=== PATIENT | male | born 1995 | race Hispanic/Latino ===

== ENCOUNTER 2018-08-14 05:31 | Emergency (ER) | payer OTHER, SELFPAY ==
[2018-08-14 06:31] LABS: Absolute Lymphocytes (CBC) 2.6 K/uL (0.7-4.9); Absolute Monocytes 0.5 K/uL (0.1-1.3); Absolute Neutrophil 5.7 K/uL (1.8-8.0); Basophils % 0.5 % (0-1.3); Eosinophils % 1.4 % (0-4.4); Hematocrit 46.3 % (39.6-49.0); Lymphocytes % 28.9 % (15.3-44.8); MCH 31.2 pg (27.0-35.0); MCV 88.7 fL (80-100); MPV 8.4 fL (7.6-11.3); Monocytes % 5.8 % (3.3-12.3); RBC Red Blood Cell Count 5.22 M/uL (4.33-5.43)
[2018-08-14 06:37] LABS: Barbiturates NEGATIVE (NEGATIVE); Benzodiazepines NEGATIVE (NEGATIVE); Cocaine NEGATIVE (NEGATIVE); METHAMPHETAM NEGATIVE (NEGATIVE); Methadone NEGATIVE (NEGATIVE); Opiates NEGATIVE (NEGATIVE); Phencyclidine NEGATIVE (NEGATIVE); THC Cannibis NEGATIVE (NEGATIVE)
[2018-08-14 06:54] LABS: ALT/SGPT 53 U/L (12-78); AST/SGOT 21 U/L (15-37); Albumin 3.6 g/dL (3.4-5.0); Alkaline Phosphatase 84 U/L (45-117); BUN Blood Urea Nitrogen 12 mg/dL (7-18); Bicarbonate 26 mmol/L (21-32); Bilirubin Direct 0.1 mg/dL (0-0.2); Bilirubin Total 0.4 mg/dL (0.2-1.0); Glucose Level 102 mg/dL (74-106); Potassium 4.1 mmol/L (3.5-5.1); Sodium Level 142 mmol/L (136-145)
--- NOTE | 2018-08-14 07:51 | RAD REPORT ---
EXAM DESCRIPTION: CT - Head Brain Wo Cont - 08/14/2018 6:34 am CLINICAL HISTORY: Transient alteration of awareness, numbness, stroke-like symptoms A preliminary report was provided at the time of the study and reviewed prior to final report. COMPARISON: None. TECHNIQUE: Axial 5 mm thick images of the head were obtained without IV contrast. All CT scans are performed using dose optimization technique as appropriate and may include automated exposure control or mA/KV adjustment according to patient size. FINDINGS: No intracranial hemorrhage, mass, edema or shift of mid-line structures. No acute infarcti on changes seen. No abnormal extra-axial fluid collections. Ventricles are normal. Mastoid air cells are clear. Minimal mucosal thickening in the left frontal sinus. Small air-fluid le sruthi is seen in the left frontal sinus. No globe or orbital content abnormality. No acute bony findings. Initial [facility]k report question an asymmetric increase in density of the right transverse sinus. Th is is probably normal variant due to the dominant sinus on the right. However, CT angio head imaging could be performed to exclude thrombus in this patient with unexplained neurologic symptoms. IMPRESSION: Negative non-contrast CT head examination. To exclude possible right transverse sinus thrombus questioned in the preliminary report, CT angio he ad imaging could be performed.
--- NOTE | 2018-08-14 07:51 | RAD REPORT ---
EXAM DESCRIPTION: CT - Head angio - 08/14/2018 7:15 am CLINICAL HISTORY: Transient alteration of awareness, numbness, questionable thrombus in the right tr ansverse sinus on a noncontrast CT study TECHNIQUE: During dynamic enhancement using nonionic IV contrast, axial 1 millimeter thick images of the head were obtained. Sagittal and axial reconstruction images were generated and reviewed. All CT scans are performed using dose optimization technique as appropriate and may include automated exposure control or mA/KV adjustment according to patient size. FINDINGS: No aneurysm or vascular malformation identified. Major venous sinuses are patent. Right transverse sinus is dominant as a normal variant. This created the asymmetric density seen on the noncontrast CT head examination. No venous thrombosis is present. No stenosis, name to branch occlusion, vasculitis or other significant vascular finding identifiable. IMPRESSION: Negative CT angio head examination. Specifically, no thrombus of the venous sinus. Right transverse sinus is the dominant vessel, as a no rmal variant, creating the asymmetric density seen on noncontrast CT imaging.
--- NOTE | 2018-08-14 07:53 | RAD REPORT ---
EXAM DESCRIPTION: CT - Neck Angio - 08/14/2018 7:16 am CLINICAL HISTORY: Transient alteration of awareness, numbness, questionable thrombus in the right tr ansverse sinus on a noncontrast CT study TECHNIQUE: During dynamic enhancement using nonionic IV contrast, axial 2 mm thick images of the nec k were obtained. Sagittal and axial reconstruction images were generated and reviewed. All CT scans are performed using dose optimization technique as appropriate and may include automated exposure control or mA/KV adjustment according to patient size. FINDINGS: No aneurysm or vascular malformation identified. No carotid or vertebral dissection. No aortic arch or great vessel origin abnormality seen. Vertebral artery origins unremarkable as well . No stenosis, vasculitis or other significant carotid artery finding. No focal abnormality of either vertebral artery. Basilar artery is normal. IMPRESSION: Negative CT angio neck examination.
--- NOTE | 2018-08-14 07:59 | ER ---
Nurse's Notes [facility] Name: Amol Panda Age: 22 yrs Sex: Male : 1995 Arrival Date: 08/14/2018 Time: 05:35 Bed 7 Private MD: Diagnosis: Altered mental status, unspecified-resolved Presentation: 08/14 05:42 Presenting complaint: Patient states: he began feeling dizzy on his way to work this morning and his tongue felt numb currently he is feeling confused and his tongue does not feel numb anymore. Transition of care: patient was not received from another setting of care. Onset of symptoms was August 14, 2018. Risk Assessment: Do you want to hurt yourself or someone else? Patient reports no desire to harm self or others. Initial Sepsis Screen: Does the patient meet any 2 criteria? No. Patient's initial sepsis screen is negative. Does the patient have a suspected source of infection? No. Patient's initial sepsis screen is negative. Care prior to arrival: None. 05:42 Method Of Arrival: Ambulatory bb 05:42 Acuity: MICHELLE 3 bb Historical: - Allergies: 05:45 No Known Allergies; bb - Home Meds: 05:45 None [Active]; bb - PMHx: 05:45 osteogenesis imperfecta; bb - PSHx: 05:45 bilateral elbows; Knee surgery; bb - Immunization history:: Adult Immunizations up to date. - Social history:: Smoking status: Patient/guardian denies using tobacco, Patient uses alcohol, occasionally. Patient/guardian denies using street drugs. - Ebola Screening: : No symptoms or risks identified at this time. Screenin:46 Abuse screen: Denies threats or abuse. Denies injuries from another. Nutritional ak1 screening: No deficits noted. Tuberculosis screening: No symptoms or risk factors identified. Fall Risk None identified. Assessment: 05:44 General: Appears in no apparent distress. Behavior is cooperative, flat. Pain: Denies ak1 pain. Neuro: Level of Consciousness is awake, alert, obeys commands, Oriented to person, place, pt stated he "feels confused" pt unable to name the day of week, the month or recall events that happened to him today. pt with steady gait from ER lobby to ER7. pt given urinal for sample. . Cardiovascular: No deficits noted. Respiratory: No deficits noted. GI: No signs and/or symptoms were reported involving the gastrointestinal system. : No signs and/or symptoms were reported regarding the genitourinary system. EENT: No signs and/or symptoms were reported regarding the EENT system. Derm: No signs and/or symptoms reported regarding the dermatologic system. Musculoskeletal: No signs and/or symptoms reported regarding the musculoskeletal system. 06:21 Reassessment: Patient appears in no apparent distress at this time. No changes from ak1 previously documented assessment. Patient and/or family updated on plan of care and expected duration. Pain level reassessed. Patient is alert, oriented x 3, equal unlabored respirations, skin warm/dry/pink. pt informed of wait times for lab results, EKG and CT scan. family at bedside. will continue to monitor. 07:30 Reassessment: Patient appears in no apparent distress at this time. Patient and/or jl7 family updated on plan of care and expected duration. Pain level reassessed. Pt denies alcohol and drug use. Neuro: Level of Consciousness is awake, alert, obeys commands, Oriented to person, situation, Pt unable to state place and year, states "[place]" for location and "2014" for year.. Cardiovascular: Patient's skin is warm and dry. Respiratory: Airway is patent Respiratory effort is even, unlabored, Respiratory pattern is regular, symmetrical. Derm: Skin is pink, warm \\T\\ dry. Vital Signs: 05:45 BP 144 / 92; Pulse 81; Resp 16 S; Temp 98.6(O); Pulse Ox 100% on R/A; Weight 77.11 kg bb (R); Height 5 ft. 10 in. (177.80 cm) (R); Pain 0/10; 06:21 BP 122 / 74; Pulse 81; Resp 16; Pulse Ox 97% on R/A; ak1 07:30 BP 128 / 70; Pulse 70; Resp 15 S; Pulse Ox 97% on R/A; Pain 2/10; jl7 05:45 Body Mass Index 24.39 (77.11 kg, 177.80 cm) ED Course: 05:35 Patient arrived in ED. ag3 05:43 Triage completed. bb 05:44 Sade Mendes, RN is Primary Nurse. ak1 05:45 Arm band placed on Patient placed in an exam room, on a stretcher, on pulse oximetry. bb 05:46 Patient has correct armband on for positive identification. Bed in low position. Call ak1 light in reach. Side rails up X 1. Adult w/ patient. Pulse ox on. NIBP on. 05:58 Cass[facility]C [facility]. kb 05:58 Edin Payan MD is Attending Physician. kb 06:20 Initial lab(s) drawn, by me, sent to lab. Urine collected: clean catch specimen, clear. ak1 Inserted saline lock: 20 gauge in right antecubital area, using aseptic technique. Blood collected. 06:23 EKG done, by technical supervisor. reviewed by Edin Payan MD. jd3 06:[address] via wheelchair. kw1 06:34 CT Head Brain wo Cont In Process Unspecified. EDMS 06:35 CT completed. Patient tolerated procedure well. Patient moved back from CT. kw1 07:[address] via wheelchair. cw1 07:16 Head angio In Process Unspecified. EDMS 07:16 Neck Angio In Process Unspecified. EDMS Administered Medications: No medications were administered Outcome: 07:58 Discharge ordered by . kb 08:22 Patient left the ED. jl7 Signatures: Dispatcher [employer] EDMS Cassi Marie FNP-C FNP-Nina Valerio, RN Andree Link cw1 Sade Mendes RN RN ak1 Leal, Jahala, RN RN jl7 Conner Kimball RN RN jd3 Wilhelm, Kimberly kw1 Susie Baltazar 3
--- NOTE | 2018-08-14 07:59 | EDPHYS ---
Physician Documentation [facility] Name: Amol Panda Age: 22 yrs Sex: Male : 1995 Arrival Date: 08/14/2018 Time: 05:35 Bed 7 Private MD: ED Physician Edin Payan HPI: 08/14 06:32 This 22 yrs old Male presents to ER via Ambulatory with complaints of kb Confusion. 06:32 The patient presents with confusion. Onset: The symptoms/episode began/occurred just kb prior to arrival. Possible causes: unknown. Associated signs and symptoms: Pertinent positives: numbness. Current symptoms: In the emergency department the patient's symptoms have resolved, the patient is alert and fully oriented, has normal speech, has normal responsiveness, has no confusion. Patient's baseline: Neuro: alert and fully oriented, Motor: no deficits, Ambulation: walks without assistance, Speech: normal. The patient has not experienced similar symptoms in the past. The patient has not recently seen a physician. Pt states he was on his way to work and started having numbness to his tongue and confusion. Pt is alert and oriented to person, place, time and situation. Pt states he is confused because he doesn't remember coming to the ER or telling his dad (who was driving him) his symptoms. Pt is able to recall event details in full, then states "well I can remember it, it is just a blur." . Historical: - Allergies: 05:45 No Known Allergies; bb - Home Meds: 05:45 None [Active]; bb - PMHx: 05:45 osteogenesis imperfecta; bb - PSHx: 05:45 bilateral elbows; Knee surgery; bb - Immunization history:: Adult Immunizations up to date. - Social history:: Smoking status: Patient/guardian denies using tobacco, Patient uses alcohol, occasionally. Patient/guardian denies using street drugs. - Ebola Screening: : No symptoms or risks identified at this time. ROS: 06:32 Constitutional: Negative for fever, chills, and weight loss, Eyes: Negative for injury, kb pain, redness, and discharge, ENT: Negative for injury, pain, and discharge, Neck: Negative for injury, pain, and swelling, Cardiovascular: Negative for chest pain, palpitations, and edema, Respiratory: Negative for shortness of breath, cough, wheezing, and pleuritic chest pain, Abdomen/GI: Negative for abdominal pain, nausea, vomiting, diarrhea, and constipation, Back: Negative for injury and pain, : Negative for injury, bleeding, discharge, and swelling, MS/Extremity: Negative for injury and deformity, Skin: Negative for injury, rash, and discoloration. 06:32 Neuro: Positive for confusion, Negative for dizziness, gait disturbance, headache, hearing loss, loss of consciousness, numbness, seizure activity, speech changes, syncope, near syncope, tingling, tinnitus, tremor, visual changes, weakness. Exam: 06:32 Constitutional: This is a well developed, well nourished patient who is awake, alert, kb and in no acute distress. Head/Face: Normocephalic, atraumatic. Eyes: Pupils equal round and reactive to light, extra-ocular motions intact. Lids and lashes normal. Conjunctiva and sclera are non-icteric and not injected. Cornea within normal limits. Periorbital areas with no swelling, redness, or edema. ENT: Nares patent. No nasal discharge, no septal abnormalities noted. Tympanic membranes are normal and external auditory canals are clear. Oropharynx with no redness, swelling, or masses, exudates, or evidence of obstruction, uvula midline. Mucous membranes moist. Neck: Trachea midline, no thyromegaly or masses palpated, and no cervical lymphadenopathy. Supple, full range of motion without nuchal rigidity, or vertebral point tenderness. No Meningismus. Chest/axilla: Normal chest wall appearance and motion. Nontender with no deformity. No lesions are appreciated. Cardiovascular: Regular rate and rhythm with a normal S1 and S2. No gallops, murmurs, or rubs. Normal PMI, no JVD. No pulse deficits. Respiratory: Lungs have equal breath sounds bilaterally, clear to auscultation and percussion. No rales, rhonchi or wheezes noted. No increased work of breathing, no retractions or nasal flaring. Abdomen/GI: Soft, non-tender, with normal bowel sounds. No distension or tympany. No guarding or rebound. No evidence of tenderness throughout. Skin: Warm, dry with normal turgor. Normal color with no rashes, no lesions, and no evidence of cellulitis. MS/ Extremity: Pulses equal, no cyanosis. Neurovascular intact. Full, normal range of motion. Neuro: Awake and alert, GCS 15, oriented to person, place, time, and situation. Cranial nerves II-XII grossly intact. Motor strength 5/5 in all extremities. Sensory grossly intact. Cerebellar exam normal. Normal gait. Vital Signs: 05:45 BP 144 / 92; Pulse 81; Resp 16 S; Temp 98.6(O); Pulse Ox 100% on R/A; Weight 77.11 kg bb (R); Height 5 ft. 10 in. (177.80 cm) (R); Pain 0/10; 06:21 BP 122 / 74; Pulse 81; Resp 16; Pulse Ox 97% on R/A; ak1 07:30 BP 128 / 70; Pulse 70; Resp 15 S; Pulse Ox 97% on R/A; Pain 2/10; jl7 05:45 Body Mass Index 24.39 (77.11 kg, 177.80 cm) bb MDM: 05:58 Patient medically screened. kb 06:32 Data reviewed: vital signs, nurses notes. Data interpreted: Pulse oximetry: on room air kb is 97 %. Interpretation: normal. 07:57 Counseling: I had a detailed discussion with the patient and/or guardian regarding: the kb historical points, exam findings, and any diagnostic results supporting the discharge/admit diagnosis, lab results, radiology results, the need for outpatient follow up, a family practitioner, a neurologist, to return to the emergency department if symptoms worsen or persist or if there are any questions or concerns that arise at home. 08/14 06:10 Order name: Acetaminophen; Complete Time: 06:59 kb 08/14 06:10 Order name: Basic Metabolic Panel; Complete Time: 06:59 kb 08/14 06:10 Order name: CBC with Diff; Complete Time: 06:38 kb 08/14 06:10 Order name: ETOH Level; Complete Time: 06:59 kb 08/14 06:10 Order name: Hepatic Function; Complete Time: 06:59 kb 08/14 06:10 Order name: Salicylate; Complete Time: 06:59 kb 08/14 06:10 Order name: CT Head Brain wo Cont; Complete Time: 07:55 kb 08/14 06:10 Order name: Urine Drug Screen; Complete Time: 06:38 kb 08/14 06:10 Order name: EKG; Complete Time: 06:11 kb 08/14 06:10 Order name: EKG - Nurse/Tech; Complete Time: 06:23 kb 08/14 06:10 Order name: IV Saline Lock; Complete Time: 06:20 kb 08/14 06:22 Order name: Urine Dipstick--Ancillary (enter results) ms 08/14 06:58 Order name: Head angio; Complete Time: 07:55 EDMS 08/14 06:58 Order name: Neck Angio; Complete Time: 07:55 EDMS 08/14 06:10 Order name: Labs collected and sent; Complete Time: 06:20 kb 08/14 06:10 Order name: Urine Dipstick-Ancillary (obtain specimen); Complete Time: 06:11 kb Administered Medications: No medications were administered Disposition: 14:48 Co-signature as Attending Physician, Edin Payan MD I agree with the assessment and wa plan of care. Disposition: 08/14/18 07:58 Discharged to Home. Impression: Altered mental status, unspecified - resolved. - Condition is Stable. - Discharge Instructions: Confusion. - Medication Reconciliation Form, Thank You Letter, Antibiotic Education, Prescription Opioid Use, Work release form form. - Follow up: Private Physician; When: 2 - 3 days; Reason: Recheck today's complaints, Continuance of care, Re-evaluation by your physician. Follow up: Emergency Department; When: As needed; Reason: Worsening of condition. Signatures: Dispatcher [employer] EDWV Cassi Marie, MDS NURSE-C MDS NURSE-Nina Valerio RN RN Jovanny Graff RN RN jl7 Edin Payan MD MD wa Corrections: (The following items were deleted from the chart) 08:22 07:58 08/14/2018 07:58 Discharged to Home. Impression: Altered mental status, jl7 unspecified - resolved. Condition is Stable. Forms are Medication Reconciliation Form, Thank You Letter, Antibiotic Education, Prescription Opioid Use. Follow up: Private Physician; When: 2 - 3 days; Reason: Recheck today's complaints, Continuance of care, Re-evaluation by your physician. Follow up: Emergency Department; When: As needed; Reason: Worsening of condition. kb
[2018-08-14 08:27] VITALS: TEMP 98.6
[2018-08-14 08:28] VITALS: O2SAT 97
[2018-08-14 08:30] VITALS: BP 128/70
[2018-08-14 09:07] LABS: Urine Blood NEGATIVE (NEG); Urine Glucose NEGATIVE (NEG); Urine Protein NEGATIVE (NEG); Urine Specific Gravity >1.030 (1.005-1.030); Urine pH 5.5 (5.0-7.0)
--- NOTE | 2018-08-16 10:15 | EKG ---
Test Date: 2018-08-14 Test Time: 06:25:27 Director Energy: TAHIR MEASUREMENT RESULTS: Intervals: Rate: 85 MN: 126 QRSD: 104 QT: 352 QTc: 418 [place]: P: 55 MN: 126 QRS: 57 T: 32 INTERPRETIVE STATEMENTS: Normal sinus rhythm Normal ECG No previous ECG available for comparison Electronically Signed On 08-16-18 10:14:02 CDT by Bill Rodriguez
== END 2018-08-14 08:22 | disposition home or self-care (01) ==
LOC: ER 05:31
DX: R41.82 Altered mental status, unspecified (principal)
CPT/HCPCS: 36415; 70450; 70496; 70498; 80048; 80076; 80307; 80320; 80329; 81003; 85025; 93005; 99284; Q9967

== ENCOUNTER 2020-04-25 01:16 | Inpatient (IN) | payer SELFPAY ==
[2020-04-25] MEDS ORDERED: NA CHLORIDE 0.9% 1,000 ML ONE (03:08)
[2020-04-25] MEDS ORDERED: ONDANSETRON 4 MG/2 ML VIAL ONE ×2 (03:08→10:53)
[2020-04-25] MEDS ORDERED: MORPHINE 2 MG/ML SYR ONE ×2 (03:08→04:36)
[2020-04-25 03:30] LABS: Absolute Lymphocytes (CBC) 2.5 K/uL (0.7-4.9); Basophils % 0.4 % (0-1.3); Hematocrit 49.7 % (39.6-49.0); Lymphocytes % 15.4 % (15.3-44.8); MPV 8.9 fL (7.6-11.3); RBC Red Blood Cell Count 5.59 M/uL (4.33-5.43)
[2020-04-25 03:35] LABS: ALT/SGPT 55 U/L (12-78); AST/SGOT 18 U/L (15-37); Albumin 4.2 g/dL (3.4-5.0); Alkaline Phosphatase 93 U/L (45-117); BUN Blood Urea Nitrogen 16 mg/dL (7-18); Bicarbonate 26 mmol/L (21-32); Bilirubin Direct < 0.1 mg/dL (0-0.2); Bilirubin Total 0.4 mg/dL (0.2-1.0); Glucose Level 106 mg/dL (74-106); Lipase 47 U/L (73-393); Potassium 3.9 mmol/L (3.5-5.1); Protein, Total 8.7 g/dL (6.4-8.2); Sodium Level 137 mmol/L (136-145)
[2020-04-25] MEDS ORDERED: PIPER/TAZO/NS 3.375gm 3.375 GM/100 ML BAG ONE (04:37)
[2020-04-25] MEDS ORDERED: MORPHINE 4 MG/ML SYR IV PRN ×2 (05:27→13:26)
[2020-04-25] MEDS: D5 0.45 NS 1,000 ML IV SCH ×3 (05:27→21:27)
[2020-04-25] MEDS ORDERED: ONDANSETRON 4 MG/2 ML VIAL IV PRN (05:27)
[2020-04-25] MEDS ORDERED: ACETAMINOPHEN 325 MG TABLET PO PRN (05:28)
[2020-04-25] MEDS ORDERED: D5 0.45 NS 1,000 ML IV ONE (05:37)
[2020-04-25] MEDS ORDERED: PIPER/TAZO/NS 3.375gm 3.375 GM/100 ML BAG IVPB SCH (06:00)
--- NOTE | 2020-04-25 08:45 | RAD REPORT ---
EXAM DESCRIPTION: RAD - Chest Pa And Lat (2 Views) - 04/25/2020 4:08 am CLINICAL HISTORY: ABDOMINAL PAIN Chest pain. COMPARISON: No comparisons FINDINGS: The lungs are clear. The heart is normal in size. No displaced fractures. IMPRESSION: No acute or concerning finding suspected.
[2020-04-25 09:36] VITALS: BMI 4696.0
--- NOTE | 2020-04-25 10:39 | ER ---
Nurse's Notes [facility] Name: Amol Panda Age: 24 yrs Sex: Male : 1995 Arrival Date: 04/25/2020 Time: :24 Bed 15 Private MD: Diagnosis: Abdominal tenderness;Elevated white blood cell count;Acute appendicitis;Fever, unspecified Presentation: 04/25 01:44 Coronavirus screen: Proceed with normal triage. Ebola Screen: No symptoms or risks ea identified at this time. :44 Method Of Arrival: Ambulatory ea 01:45 Chief complaint: Patient states: Reports having right sided pain that radiates to his ea abdomen that started yesterday evening. Pt reports he feels bloated. Pt denies n/v/d and constipation. Reports taking Advil and Tums at 2200 yesterday evening. Initial Sepsis Screen: Does the patient meet any 2 criteria? No. Patient's initial sepsis screen is negative. Does the patient have a suspected source of infection? No. Patient's initial sepsis screen is negative. Risk Assessment: Do you want to hurt yourself or someone else? Patient reports no desire to harm self or others. Onset of symptoms was April 25, 2020. :45 Acuity: MICHELLE 3 ea Triage Assessment: 01:49 General: Appears uncomfortable, Behavior is appropriate for age. Pain: ea 01:49 GI: Abdomen is non-distended, Reports bloating. ea Historical: - Allergies: 01:49 No Known Allergies; ea - PMHx: 01:49 osteogenesis imperfecta; ea - PSHx: 01:49 Knee surgery; bilateral elbows; ea - Immunization history:: Adult Immunizations up to date. - Social history:: Smoking status: Patient denies any tobacco usage or history of. - Family history:: not pertinent. Screenin:44 Abuse screen: Denies threats or abuse. Nutritional screening: No deficits noted. ea Tuberculosis screening: No symptoms or risk factors identified. Fall Risk None identified. Assessment: 03:17 General: Appears in no apparent distress. uncomfortable, Behavior is calm, cooperative, jd3 appropriate for age. Pain: Complains of pain in abdomen. Neuro: Level of Consciousness is awake, alert, obeys commands, Oriented to person, place, time, situation. Cardiovascular: Denies chest pain, Capillary refill < 3 seconds Patient's skin is warm and dry. Respiratory: Airway is patent Respiratory effort is even, unlabored, Respiratory pattern is regular, symmetrical, Denies cough, shortness of breath. GI: Abdomen is round non-distended, Abd is soft X 4 quads Abdomen is tender to palpation X 4 quads. Reports lower abdominal pain, upper abdominal pain, Patient currently denies nausea. : No signs and/or symptoms were reported regarding the genitourinary system. EENT: No signs and/or symptoms were reported regarding the EENT system. Derm: Skin is intact, Skin is dry, Skin is normal, Skin temperature is warm. Musculoskeletal: Circulation, motion, and sensation intact. Range of motion: intact in all extremities. 04:19 Reassessment: Patient appears in no apparent distress at this time. No changes from [facility] previously documented assessment. Patient and/or family updated on plan of care and expected duration. Pain level reassessed. Patient is alert, oriented x 3, equal unlabored respirations, skin warm/dry/pink. 05:54 Reassessment: Patient appears in no apparent distress at this time. Patient and/or jd3 family updated on plan of care and expected duration. Pain level reassessed. Patient is alert, oriented x 3, equal unlabored respirations, skin warm/dry/pink. charting continued in [facility]. Vital Signs: 01:45 BP 136 / 89; Pulse 89; Resp 16; Temp 99.6; Pulse Ox 100% ; Weight 72.57 kg; Height 5 ea ft. 6 in. (167.64 cm); 04:19 BP 117 / 90; Pulse 70; Resp 17 S; Pulse Ox 100% on R/A; jd3 05:53 BP 121 / 94; Pulse 70; Resp 16 S; Pulse Ox 100% on R/A; jd3 01:45 Body Mass Index 25.82 (72.57 kg, 167.64 cm) ea ED Course: 01:24 Patient arrived in ED. ag3 01:44 Patient has correct armband on for positive identification. ea 01:48 Triage completed. ea 01:48 Arm band placed on right wrist. ea 02:02 Raj Reilly MD is Attending Physician. rudolph 02:43 Conner Kimball RN is Primary Nurse. jd3 02:50 Inserted saline lock: 20 gauge in right antecubital area, using aseptic technique. jd3 Blood collected. 04:07 Abdomen In Process Unspecified. EDMS 04:08 Chest Pa And Lat (2 Views) In Process Unspecified. EDMS 04:26 Feng Zavala MD is Hospitalizing Provider. rudolph 05:54 No provider procedures requiring assistance completed. Patient admitted, IV remains in jd3 place. Administered Medications: 03:04 Drug: NS 0.9% 1000 ml Route: IV; Rate: 1 bolus; Site: right antecubital; jd3 04:00 Follow up: Response: No adverse reaction; IV Status: Completed infusion; IV Intake: jd3 1000ml 03:04 Drug: morphine 2 mg Route: IVP; Site: right antecubital; jd3 04:00 Follow up: Response: No adverse reaction; RASS: Alert and Calm (0) jd3 03:04 Drug: Zofran (Ondansetron) 4 mg Route: IVP; Site: right antecubital; jd3 04:00 Follow up: Response: No adverse reaction jd3 04:31 Drug: morphine 2 mg Route: IVP; Site: right antecubital; jd3 05:30 Follow up: Response: No adverse reaction; RASS: Alert and Calm (0) jd3 04:40 Drug: Zosyn 3.375 grams Route: IVPB; Infused Over: 60 mins; Site: right antecubital; jd3 05:52 Follow up: Response: No adverse reaction; IV Status: Completed infusion; IV Intake: jd3 100ml Intake: 04:00 IV: 1000ml; Total: 1000ml. jd3 05:52 IV: 100ml; Total: 1100ml. jd3 Outcome: 04:27 Decision to Hospitalize by Provider. rudolph 05:54 Admitted to ER Hold. Please see [facility] for further documentation. jd3 05:54 Condition: stable 05:54 Instructed on the need for admit, Demonstrated understanding of instructions. 08:25 Patient left the ED. sv Signatures: Dispatcher [employer] Apolonia Lyn RN RN sv Anderson, Corey, MD MD cha Antunez, Elena, RN RN ea Davies, Jonathon, RN RN jd3 Gomez, Alice ag3 Corrections: (The following items were deleted from the chart) 05:54 05:54 GI: jd3 jd3
--- NOTE | 2020-04-25 10:39 | EDPHYS ---
Physician Documentation [facility] Name: Amol Panda Age: 24 yrs Sex: Male : 1995 Arrival Date: 04/25/2020 Time: 01:24 Bed 15 Private MD: ED Physician Raj Reilly HPI: 04/25 02:24 This 24 yrs old Male presents to ER via Ambulatory with complaints of rudolph Abdominal Pain. 02:24 The patient presents with abdominal pain in the right upper quadrant. Onset: The rudolph symptoms/episode began/occurred 1 day(s) ago. The symptoms do not radiate. Associated signs and symptoms: Pertinent positives: fever. The symptoms are described as constant, crampy. Modifying factors: The symptoms are alleviated by nothing, the symptoms are aggravated by nothing. Severity of pain: At its worst the pain was mild moderate in the emergency department the pain is unchanged. The patient has not experienced similar symptoms in the past. Historical: - Allergies: 01:49 No Known Allergies; ea - PMHx: 01:49 osteogenesis imperfecta; ea - PSHx: 01:49 Knee surgery; bilateral elbows; ea - Immunization history:: Adult Immunizations up to date. - Social history:: Smoking status: Patient denies any tobacco usage or history of. - Family history:: not pertinent. ROS: 02:24 Constitutional: Negative for fever, chills, and weight loss, Eyes: Negative for injury, rudolph pain, redness, and discharge, ENT: Negative for injury, pain, and discharge, Neck: Negative for injury, pain, and swelling, Cardiovascular: Negative for chest pain, palpitations, and edema, Respiratory: Negative for shortness of breath, cough, wheezing, and pleuritic chest pain, Back: Negative for injury and pain, : Negative for injury, bleeding, discharge, and swelling, MS/Extremity: Negative for injury and deformity, Skin: Negative for injury, rash, and discoloration, Neuro: Negative for headache, weakness, numbness, tingling, and seizure, Psych: Negative for depression, anxiety, suicide ideation, homicidal ideation, and hallucinations, Allergy/Immunology: Negative for hives, rash, and allergies, Endocrine: Negative for neck swelling, polydipsia, polyuria, polyphagia, and marked weight changes, Hematologic/Lymphatic: Negative for swollen nodes, abnormal bleeding, and unusual bruising. 02:24 Abdomen/GI: Positive for abdominal pain, of the anterior aspect of right lateral abdomen and right upper quadrant. Exam: 02:24 Constitutional: This is a well developed, well nourished patient who is awake, alert, rudolph and in no acute distress. Head/Face: Normocephalic, atraumatic. Eyes: Pupils equal round and reactive to light, extra-ocular motions intact. Lids and lashes normal. Conjunctiva and sclera are non-icteric and not injected. Cornea within normal limits. Periorbital areas with no swelling, redness, or edema. ENT: Nares patent. No nasal discharge, no septal abnormalities noted. Tympanic membranes are normal and external auditory canals are clear. Oropharynx with no redness, swelling, or masses, exudates, or evidence of obstruction, uvula midline. Mucous membranes moist. Neck: Trachea midline, no thyromegaly or masses palpated, and no cervical lymphadenopathy. Supple, full range of motion without nuchal rigidity, or vertebral point tenderness. No Meningismus. Chest/axilla: Normal chest wall appearance and motion. Nontender with no deformity. No lesions are appreciated. Cardiovascular: Regular rate and rhythm with a normal S1 and S2. No gallops, murmurs, or rubs. Normal PMI, no JVD. No pulse deficits. Respiratory: Lungs have equal breath sounds bilaterally, clear to auscultation and percussion. No rales, rhonchi or wheezes noted. No increased work of breathing, no retractions or nasal flaring. Back: No spinal tenderness. No costovertebral tenderness. Full range of motion. Male : Normal genitalia with no discharge or lesions. Skin: Warm, dry with normal turgor. Normal color with no rashes, no lesions, and no evidence of cellulitis. MS/ Extremity: Pulses equal, no cyanosis. Neurovascular intact. Full, normal range of motion. Neuro: Awake and alert, GCS 15, oriented to person, place, time, and situation. Cranial nerves II-XII grossly intact. Motor strength 5/5 in all extremities. Sensory grossly intact. Cerebellar exam normal. Normal gait. Psych: Awake, alert, with orientation to person, place and time. Behavior, mood, and affect are within normal limits. 02:24 Abdomen/GI: Inspection: abdomen appears normal, Bowel sounds: normal, Palpation: mild abdominal tenderness, in the anterior aspect of right lateral abdomen and right upper quadrant. Vital Signs: 01:45 BP 136 / 89; Pulse 89; Resp 16; Temp 99.6; Pulse Ox 100% ; Weight 72.57 kg; Height 5 ea ft. 6 in. (167.64 cm); 04:19 BP 117 / 90; Pulse 70; Resp 17 S; Pulse Ox 100% on R/A; jd3 05:53 BP 121 / 94; Pulse 70; Resp 16 S; Pulse Ox 100% on R/A; jd3 01:45 Body Mass Index 25.82 (72.57 kg, 167.64 cm) ea MDM: 02:14 Patient medically screened. [facility] 02:26 Data reviewed: vital signs, nurses notes, lab test result(s), radiologic studies, CT rudolph scan, plain films. 02:26 Differential diagnosis: appendicitis, bowel obstruction, cholecystitis, Cholelithiasis, rudolph diverticulitis, Irritable bowel syndrome, non-specific abd pain, pancreatitis, Peptic Ulcer Disease, urinary tract infection. Data interpreted: court recording monitor: not applicable for this patient encounter. rate is 89 beats/min, rhythm is normal sinus rhythm, Pulse oximetry: on room air is 100 %. Test interpretation: by ED physician or midlevel provider: plain radiologic studies. Counseling: I had a detailed discussion with the patient and/or guardian regarding: the historical points, exam findings, and any diagnostic results supporting the discharge/admit diagnosis, lab results, radiology results. Response to treatment: the patient's symptoms have markedly improved after treatment. 04:25 ED course: ct acute uncomplicated appendicitis, seun dunbar, put on zosyn, ivf, npo, rudolph pain meds. 04/25 02:00 Order name: Urine Dipstick--Ancillary (enter results) tt3 04/25 02:23 Order name: Basic Metabolic Panel [facility] 04/25 02:23 Order name: CBC with Diff [facility] 04/25 02:23 Order name: Hepatic Function [facility] 04/25 02:23 Order name: Lipase [facility] 04/25 03:09 Order name: Basic Metabolic Panel; Complete Time: 03:40 EDMS 04/25 03:09 Order name: Liver (Hepatic) Function; Complete Time: 03:40 EDMS 04/25 03:09 Order name: Lipase; Complete Time: 03:40 [facility] 04/25 03:09 Order name: CBC with Automated Diff; Complete Time: 03:40 EDMS 04/25 05:28 Order name: Basic Metabolic Panel [facility] 04/25 05:28 Order name: Basic Metabolic Panel [facility] 04/25 05:28 Order name: CBC with Automated Diff [facility] 04/25 05:28 Order name: CBC with Automated Diff [facility] 04/25 05:28 Order name: Lipase [facility] 04/25 02:23 Order name: IV Saline Lock; Complete Time: 03:04 [facility] 04/25 02:23 Order name: Labs collected and sent; Complete Time: 03:04 [facility] 04/25 02:23 Order name: Chest Pa And Lat (2 Views) XRAY [facility] 04/25 02:23 Order name: CT Abd/Pelvis - IV Contrast Only [facility] 04/25 03:11 Order name: Abdomen [facility] 04/25 03:49 Order name: Chest Pa And Lat (2 Views) [facility] 04/25 05:28 Order name: NPO [facility] 04/25 05:28 Order name: Lipase [facility] 04/25 05:28 Order name: Liver (Hepatic) Function [facility] 04/25 05:28 Order name: Liver (Hepatic) Function ED[facility] Administered Medications: 03:04 Drug: NS 0.9% 1000 ml Route: IV; Rate: 1 bolus; Site: right antecubital; jd3 04:00 Follow up: Response: No adverse reaction; IV Status: Completed infusion; IV Intake: jd3 1000ml 03:04 Drug: morphine 2 mg Route: IVP; Site: right antecubital; jd3 04:00 Follow up: Response: No adverse reaction; RASS: Alert and Calm (0) jd3 03:04 Drug: Zofran (Ondansetron) 4 mg Route: IVP; Site: right antecubital; jd3 04:00 Follow up: Response: No adverse reaction jd3 04:31 Drug: morphine 2 mg Route: IVP; Site: right antecubital; jd3 05:30 Follow up: Response: No adverse reaction; RASS: Alert and Calm (0) jd3 04:40 Drug: Zosyn 3.375 grams Route: IVPB; Infused Over: 60 mins; Site: right antecubital; jd3 05:52 Follow up: Response: No adverse reaction; IV Status: Completed infusion; IV Intake: jd3 100ml Disposition: 04/25/20 04:27 Hospitalization ordered by Feng Dunbar for Observation. Preliminary diagnosis are Abdominal tenderness, Elevated white blood cell count, Acute appendicitis, Fever, unspecified. - Bed requested for Telemetry/MedSurg (observation). - Status is Observation. sv - Condition is Stable. - Problem is new. - Symptoms have improved. Signatures: Dispatcher [employer] EDOneyda Andrew RN Apolonia Sagastume RN RN sv Anderson, Corey, MD MD cha Lasagna, Tonya, RN RN tl1 Paula Causey RN RN ea Davies, Jonathon RN RN jd3 Corrections: (The following items were deleted from the chart) 04:27 04:27 Hospitalization Ordered by Feng Dunbar MD for Observation. Preliminary rudolph diagnosis is Abdominal tenderness; Elevated white blood cell count; Acute appendicitis. Bed requested for Telemetry/MedSurg (observation). Status is Observation. Condition is Stable. Problem is new. Symptoms have improved. rudolph 04:40 04:27 04/25/2020 04:27 Hospitalization Ordered by Feng Dunbar MD for Observation. [email or web address] Preliminary diagnosis is Abdominal tenderness; Elevated white blood cell count; Acute appendicitis; Fever, unspecified. Bed requested for Telemetry/MedSurg (observation). Status is Observation. Condition is Stable. Problem is new. Symptoms have improved. rudolph 07:47 04:40 04/25/2020 04:27 Hospitalization Ordered by Feng Dunbar MD for Observation. kl Preliminary diagnosis is Abdominal tenderness; Elevated white blood cell count; Acute appendicitis; Fever, unspecified. Bed requested for [facility] ER HOLD. Status is Observation. Condition is Stable. Problem is new. Symptoms have improved. tl1 08:25 07:47 04/25/2020 04:27 Hospitalization Ordered by Feng Dunbar MD for Observation. sv Preliminary diagnosis is Abdominal tenderness; Elevated white blood cell count; Acute appendicitis; Fever, unspecified. Bed requested for Telemetry/MedSurg (observation). Status is Observation. Condition is Stable. Problem is new. Symptoms have improved. kl
[2020-04-25] MEDS ORDERED: propofoL 200 MG/20 ML VIAL IV ONE (10:51)
[2020-04-25] MEDS ORDERED: FENTANYL CITR 100 MCG/2 ML ONE (10:51)
[2020-04-25] MEDS ORDERED: LIDOCAINE 2% MPF 5 ML VIAL ONE (10:52)
[2020-04-25] MEDS ORDERED: KETOROLAC 30 MG/ML INJ ONE (10:52)
[2020-04-25] MEDS ORDERED: MIDAZOLAM HCL 2 MG/2 ML INJ ONE (10:52)
[2020-04-25] MEDS ORDERED: dexAMETHasone 10 MG/ML VIAL ONE (10:52)
[2020-04-25] MEDS ORDERED: ROCURONIUM 50 MG/5 ML VIAL IV ONE (10:52)
[2020-04-25] MEDS ORDERED: Ringers Lactate 1,000 ML IV ONE (11:47)
[2020-04-25] MEDS: PIPER/TAZO/NS 3.375gm 3.375 GM/100 ML BAG IVPB SCH ×2 (11:55→17:30)
--- NOTE | 2020-04-25 11:59 | P.HP ---
Date of Service: 04/25/20 PC: This 24-year-old male presented to the emergency room with periumbilical pain for diagnosis and treatment. HPC: Patient had been experiencing periumbilical pain yesterday. Over the course of the day and gradually migrated to the right lower quadrant. Pain became very severe and he came to the hospital for diagnosis PMH: Negative PSHx: Angelita SOC: No known allergies SYS REVIEW: No cough, wheeze, shortness of breath. No chest pain or palpitations. Denies any urinary complaints. Works in the plan as an behavioral assistant O/E awake alert vital signs are stable HEENT: Not jaundiced Chest: Chest movement equal bilaterally ABD: Tender with guarding in the right lower quadrant LOCO: Intact DATA: Elevated white cell count, CT scan supports clinical diagnosis of acute abdomen IMPRESSION: Acute abdomen with appendicitis PLAN: I will take him to the operating room for laparoscopic possible open appendectomy. The risks of this procedure have been discussed. The possibility of bleeding, infection, injury to bowel and blood vessels has been described. The possible need for an open and/or further surgeries and procedures was discussed. He understands and wants us to proceed.
--- NOTE | 2020-04-25 12:02 | RAD REPORT ---
EXAM DESCRIPTION: CT ABDOMEN AND PELVIS WITH CONTRAST CLINICAL HISTORY: PAIN COMPARISON: None Available. TECHNIQUE: CT of the abdomen and pelvis performed following IV administration of iodinated contrast. FINDINGS: Lung Bases: The visualized lung bases are clear. Bones: No destructive bone lesions identified. 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 Abdomen: Liver: The liver has normal size and density. No intrahepatic biliary dilatation. Gallbladder: No calcified gallstones. Spleen, Pancreas, and Adrenal Glands: The spleen, pancreas, and adrenal glands are unremarkable. Kidneys: No hydronephrosis or obstructing calculus. Vasculature: The aorta and IVC have normal caliber and position. The portal vein is patent. The pro ximal visceral and renal arteries are patent. Stomach: The stomach and duodenum have normal course. Other: No free intraperitoneal air. No free fluid or lymphadenopathy. Pelvis: Bladder: Urinary bladder is unremarkable. Bowel: No dilated loops of large or small bowel. Appendix: Dilation of the appendix measuring 1.2 cm with wall thickening. Appendicolith. Minimal in flammatory change. No well-circumscribed periappendiceal fluid collection. Pelvis: Prostate is not enlarged. IMPRESSION: 1. Findings compatible with acute uncomplicated appendicitis. Urgent finding reported to Dr. Reilly at 04/25/2020 4:24 AM CDT This exam was performed according to our departmental dose-optimization program, which includes autom ated exposure control, adjustment of the mA and/or kV according to patient size and/or use of iterati ve reconstruction technique. Electronically signed by: Tony Rabago 04/25/2020 4:24 AM CDT Due to temporary technical issues with the PACS/Fluency reporting system, reports are being signed by the in house radiologist without review as a courtesy to ensure prompt reporting. The interpreting r adiologist is fully responsible for the content of the report.
[2020-04-25 13:01] LABS: Urine Blood NEGATIVE (NEG); Urine Glucose NEGATIVE (NEG); Urine Protein NEGATIVE (NEG); Urine Specific Gravity >1.030 (1.005-1.030); Urine pH 6.5 (5.0-7.0)
--- NOTE | 2020-04-25 13:09 | P.OP ---
Preoperative diagnosis: Acute abdomen Postoperative diagnosis: Acute appendicitis Primary procedure: Laparoscopic appendectomy Secondary procedure: LEANNA block Anesthesia: General Estimated blood loss: Less than 10 cc Specimen: 1 appendix Operative Technique: The patient brought the operating room placed supine on the table. After the induction of adequate general endotracheal anesthesia, the area of the abdomen was prepped with a DuraPrep solution, and he was draped in usual aseptic manner. A subumbilical incision was made. This was brought down through the skin and subcutaneous tissue. The Visiport was now used to enter the peritoneal cavity and created pneumoperitoneum to approximately 12 mm of mercury. Under direct vision a 5 mm trocar was placed in the lower midline, and another in her right upper quadrant. The patient was now placed in Trendelenburg and rolled to the left. We could visualize the right lower quadrant. We could see an inflamed and erythematous appendix. The appendix was grasped. An opening was made in the mesentery at its the junction of the appendix with the cecum. The 10 mm umbilical trocar was converted to a 12. Using the linear Stapler, was introduced into the peritoneal cavity, placed across the base of the appendix and fired. Attention was turned towards the mesentery. This was crushed using a grasper. The linear Stapler was now placed across this and fired. A 2nd reload was used to secure it. The 2nd re-loaded not fire adequately, and hence we took down the rest the mesentery using judicious electrocautery. The specimen having been freed was placed into an Endo-Catch, and brought out through the umbilical trocar site. Attention was turned back towards the right lower quadrant. We were able inspect our suture line. There was no active bleeding noted with a copious amount of saline solution. Attention was now turned towards the anterior abdominal wall. We were able to a Leanna block on both left and right sides to allow for adequate analgesia GB during the postoperative period. This was done using 0.25% Marcaine. Attention was now turned towards the emboli kiss. The facile defect was approximated using absorbable suture and the Endo Close. At this point the trocars were removed, the suture tied, and ventura applied to the skin. He was stable when sent to the recovery room. Needle sponge instrument count were correct. No drains were placed. Complications: None Transferred to: Recovery Room Condition: Good
[2020-04-25] MEDS ORDERED: GLYCOPYRROLATE 0.2 MG/ML SYR ONE (13:11)
[2020-04-25] MEDS ORDERED: NEOSTIGMINE 1 MG/ML -5 ML ONE (13:24)
[2020-04-25] MEDS ORDERED: HYDROCODONE/APAP 7.5/325 MG TAB PO PRN (13:26)
[2020-04-25] MEDS ORDERED: MEPERIDINE HCL 25 MG/ML SYR ONE (13:27)
[2020-04-25] MEDS: HYDROMORPHONE HCL 1 MG/ML INJ ONE ×2 (13:38→13:44)
[2020-04-25 13:49] VITALS: O2SAT 96
[2020-04-26] MEDS: PIPER/TAZO/NS 3.375gm 3.375 GM/100 ML BAG IVPB SCH ×2 (00:13→08:35)
[2020-04-26] MEDS: D5 0.45 NS 1,000 ML IV SCH ×2 (05:27→13:27)
[2020-04-26 12:09] VITALS: BP 112/54; TEMP 98.6
--- NOTE | 2020-04-26 13:21 | P.PN ---
Date of Service: 04/26/20 S: Patient feels much better today, has been up ambulating, tolerating a diet and his pain is well controlled on oral medications. O: Incisions are clean, good effort on incentive spirometry A: Surgically stable status post laparoscopic appendectomy. P: Discharge home. The patient will follow up the next week in my office, he has been advised on diet, wound care, and pain medication. He will see me next week in my office. Should he have any questions or problems, he may go to the emergency room, or contact me.
--- NOTE | 2020-04-26 13:23 | P.DS ---
Admission Date: 04/25/20 Discharge Date: 04/26/20 Disposition: ROUTINE DISCHARGE Discharge Condition: GOOD Reason for Admission: Acute postoperative abdominal pain Procedures: Laparoscopic appendectomy Brief History of Present Illness: Patient presented emergency room with severe right lower quadrant abdominal pain for diagnosis and treatment Hospital Course: The patient was evaluated emergency room. A CT support clinical diagnosis of acute abdomen with appendicitis. He was brought to the operating room Re underwent a laparoscopic appendectomy. He was admitted postoperatively for observation pain control. Today he is up ambulating, tolerating full liquids, and his pain is well controlled on oral medication. He will be discharged to follow up my office next week. Should any questions or problems, he we can go to the emergency room, or contact me. Vital Signs/Physical Exam: Temp Pulse Resp BP Pulse Ox 98.6 F 86 18 112/54 L 98 04/26/20 12:00 04/26/20 12:00 04/26/20 12:00 04/26/20 12:00 04/26/20 12:00 Laboratory Data at Discharge: WBC 15.9 K/uL (4.3-10.9) H 04/25/20 02:55 Hgb 16.9 g/dL (13.6-17.9) 04/25/20 02:55 Hct 49.7 % (39.6-49.0) H 04/25/20 02:55 Plt Count 270 K/uL (152-406) 04/25/20 02:55 Sodium 137 mmol/L (136-145) 04/25/20 02:55 Potassium 3.9 mmol/L (3.5-5.1) 04/25/20 02:55 BUN 16 mg/dL (7-18) 04/25/20 02:55 Creatinine 0.89 mg/dL (0.55-1.3) 04/25/20 02:55 Glucose 106 mg/dL (74-106) 04/25/20 02:55 Total Bilirubin 0.4 mg/dL (0.2-1.0) 04/25/20 02:55 AST 18 U/L (15-37) 04/25/20 02:55 ALT 55 U/L (12-78) 04/25/20 02:55 Alkaline Phosphatase 93 U/L (45-117) 04/25/20 02:55 Lipase 47 U/L (73-393) L 04/25/20 02:55 Home Medications: NK [No Home Meds] 04/25/20
== END 2020-04-26 14:30 | disposition home or self-care (01) | DRG 343 ==
LOC: ER 01:16 → ERHOLD 05:36 → 2ND 08:18 → OBSVTOIN 13:25
PROVIDERS: ADMIT Surgery; ATTEND Surgery
PROC: 3E0 Administration, Physiological Systems and Anatomical Regions, Introduction (ICD-10-PCS; 2020-04-25)
PROC: 0DTJ4ZZ Resection of Appendix, Percutaneous Endoscopic Approach (ICD-10-PCS; principal; 2020-04-25 10:45)
DX: K35.80 Unspecified acute appendicitis (principal); R50.9 Fever, unspecified; Z20.828 Contact with and (suspected) exposure to other viral communicable diseases
CPT/HCPCS: 36415; 71046; 74177; 80048; 80076; 81003; 83690; 85025; 88304; 96361; 96365; 96375; 99285; G0378; J1100; J1170; J2175; J2250; J2270; J2405; J2543; J2704; J2710; J3010; J7030; J7120; J7799; Q9967; U0002